=== PATIENT | male | born 1955 | race Caucasian/White ===

== ENCOUNTER 2021-07-21 05:52 | Day surgery (SDC) | payer BC ==
[2021-07-21] MEDS ORDERED: Lactated Ringers 1,000 ML IV SCH (06:30)
[2021-07-21] MEDS ORDERED: DIPRIVAN 200 MG/20 ML IV ONE ×2 (07:46→08:09)
--- NOTE | 2021-07-21 08:25 | OP ---
SURGERY DATE/TIME: 07/21/2021 0752 PREOPERATIVE DIAGNOSIS: Screening exam. POSTOPERATIVE DIAGNOSIS: Sigmoid diverticulosis and small polyps in the transverse and rectal area. PROCEDURE: Colonoscopy with cold forceps biopsy. SURGEON: Dr. Damon. ANESTHESIA: MAC. Medications given by anesthesia department. HISTORY: The patient is a 66-year-old white male patient presenting for screening colonoscopy. He was appraised of the risks of the procedure including the risk of perforation, phlebitis, untoward reaction to medication, bleeding and missed lesions. The patient verbalized his understanding and desired to have the procedure performed. DESCRIPTION OF PROCEDURE: The patient was given the medications by the anesthesia department. He had continuous pulse oximetry, ECG monitoring, intermittent blood pressure monitoring and tidal CO2 monitoring during the examination. He was placed in the left lateral decubitus position. A digital rectal examination was performed and revealed normal anal sphincter tone, no masses and a normal prostate. The flexible Olympus pediatric colonoscope was used to intubate the rectum. A view of the colon was developed sequentially to the cecum. Upon insertion and withdrawal was noted sigmoid diverticulosis at least moderate in nature. There was a small polyp measuring less than 0.5 cm size in the transverse colon this is biopsied using cold biopsy technique. A second small polyp was also noted in the rectal area suspicious for possible adenomatous change and this is biopsied with cold forceps as well. The scope was removed from the patient who tolerated the procedure well and was sent back to OP recovery in good condition. The prep was noted to be fair to good.
[2021-07-21 09:01] VITALS: O2SAT 95
[2021-07-21 09:21] VITALS: BP 137/86; PULSE 68
== END 2021-07-21 09:34 | disposition home or self-care (01) ==
LOC: SDC 05:52
PROVIDERS: ATTEND Family Medicine
DX: Z12.11 Encounter for screening for malignant neoplasm of colon (principal); K57.30 Diverticulosis of large intestine without perforation or abscess without bleeding; D12.3 Benign neoplasm of transverse colon; K62.1 Rectal polyp
CPT/HCPCS: 88305; J2704